=== PATIENT | male | born 1945 | race Caucasian/White ===

== ENCOUNTER 2020-04-06 09:25 | Outpatient (REF) | payer MEDICARE, SELFPAY ==
[2020-04-06 11:35] LABS: Estimated Average Glucose 123 mg/dL; Hemoglobin A1c % 5.9 %
[2020-04-06 11:53] LABS: Alanine Aminotransferase 8 U/L (0-40); Albumin Level 4.2 g/dL (3.5-5.0); Alkaline Phosphatase 74 U/L (39-117); Anion Gap 14 (12-20); Aspartate Amino Transferase 13 U/L (5-37); Bilirubin Total 0.8 mg/dL (0.0-1.0); Blood Urea Nitrogen 7 mg/dL (9-16); Calcium 8.4 mg/dL (8.4-10.2); Carbon Dioxide 26 mmol/L (22-29); Chloride 103 mmol/L (96-108); Cholesterol 133 mg/dL; Estimated Glomerular Filt Rate > 60; Glucose Fasting 113 mg/dL (60-99); HDL Cholesterol 41 mg/dL; LDL Cholesterol Calculated 79 mg/dl; Potassium 4.3 mmol/l (3.3-5.1); Sodium 139 mmol/L (135-145); Total Protein 6.8 g/dL (6.5-8.0); Triglycerides 69 mg/dL
[2020-04-06 12:14] LABS: Vitamin B12 236 pg/mL (200-900)
[2020-04-06 13:23] LABS: Creatinine Urine 53.34 mg/dL; Microalbum/Creatinine Ratio Ur 151.8 ug/mg cr
== END 2020-04-06 09:26 | disposition home or self-care (01) ==
LOC: HO.MANLR 09:25
PROVIDERS: PCP Internal Medicine; Visit Provider Internal Medicine
DX: E11.9 Type 2 diabetes mellitus without complications (principal); E53.8 Deficiency of other specified B group vitamins
CPT/HCPCS: 80053; 80061; 82043; 82607; 83036

== ENCOUNTER 2020-07-13 10:30 | Outpatient (REF) | payer MEDICARE, SELFPAY ==
[2020-07-13 13:00] LABS: Estimated Average Glucose 105 mg/dL; Hemoglobin A1c % 5.3 %
== END 2020-07-13 10:31 | disposition home or self-care (01) ==
LOC: HO.MANLDS 10:30
PROVIDERS: PCP Internal Medicine; Visit Provider Internal Medicine
DX: E11.9 Type 2 diabetes mellitus without complications (principal)
CPT/HCPCS: 36415; 83036

== ENCOUNTER 2020-11-13 11:51 | Outpatient (REF) | payer MEDICARE, SELFPAY ==
[2020-11-13 13:00] LABS: Estimated Average Glucose 82 mg/dL; Hemoglobin A1c % 4.5 %
[2020-11-13 14:26] LABS: Vitamin B12 169 pg/mL (200-900)
== END 2020-11-13 11:52 | disposition home or self-care (01) ==
LOC: HO.MANLR 11:51
PROVIDERS: PCP Internal Medicine; Visit Provider Internal Medicine
DX: E11.9 Type 2 diabetes mellitus without complications (principal); E53.8 Deficiency of other specified B group vitamins
CPT/HCPCS: 36415; 82607; 83036

== ENCOUNTER 2021-02-08 09:12 | Outpatient (REF) | payer MEDICARE, SELFPAY ==
[2021-02-08 11:16] LABS: Alanine Aminotransferase 25 U/L (0-40); Albumin Level 4.3 g/dL (3.5-5.0); Alkaline Phosphatase 69 U/L (39-117); Anion Gap 16 (12-20); Aspartate Amino Transferase 25 U/L (5-37); Bilirubin Total 0.4 mg/dL (0.0-1.0); Blood Urea Nitrogen 10 mg/dL (9-16); Calcium 9.3 mg/dL (8.4-10.2); Carbon Dioxide 30 mmol/L (22-29); Chloride 94 mmol/L (96-108); Cholesterol 180 mg/dL; Estimated Glomerular Filt Rate > 60; Glucose Fasting 244 mg/dL (60-99); HDL Cholesterol 48 mg/dL; LDL Cholesterol Calculated 91 mg/dl; Potassium 3.3 mmol/L (3.3-5.1); Sodium 137 mmol/L (135-145); Total Protein 6.7 g/dL (6.5-8.0); Triglycerides 205 mg/dL
[2021-02-08 11:16] LABS: Creatinine Urine 19.78 mg/dL; Microalbum/Creatinine Ratio Ur 65.7 ug/mg cr
[2021-02-08 11:46] LABS: Vitamin B12 1100 pg/mL (200-900)
[2021-02-08 12:02] LABS: Estimated Average Glucose 134 mg/dL; Hemoglobin A1C 159.2159 umol/L; Hemoglobin A1c % 6.3 %
== END 2021-02-08 09:13 | disposition home or self-care (01) ==
LOC: HO.MANLDS 09:12
PROVIDERS: PCP Internal Medicine; Visit Provider Internal Medicine
DX: E11.9 Type 2 diabetes mellitus without complications (principal); E53.8 Deficiency of other specified B group vitamins
CPT/HCPCS: 36415; 80053; 80061; 82043; 82607; 83036

== ENCOUNTER 2021-03-19 11:29 | Outpatient (REF) | payer MEDICARE, SELFPAY ==
[2021-03-19 14:27] LABS: Alanine Aminotransferase 20 U/L (0-40); Albumin Level 3.3 g/dL (3.5-5.0); Alkaline Phosphatase 99 U/L (39-117); Anion Gap 15 (12-20); Aspartate Amino Transferase 12 U/L (5-37); Bilirubin Total 0.2 mg/dL (0.0-1.0); Blood Urea Nitrogen 18 mg/dL (9-16); Calcium 8.6 mg/dL (8.4-10.2); Carbon Dioxide 25 mmol/L (22-29); Chloride 94 mmol/L (96-108); Estimated Glomerular Filt Rate > 60; Glucose Random 276 mg/dL (60-115); Potassium 4.4 mmol/L (3.3-5.1); Sodium 130 mmol/L (135-145); Total Protein 6.5 g/dL (6.5-8.0)
== END 2021-03-19 11:30 | disposition home or self-care (01) ==
LOC: HO.MANLDS 11:29
PROVIDERS: PCP Internal Medicine; Visit Provider Internal Medicine
DX: R60.0 Localized edema (principal)
CPT/HCPCS: 36415; 80053

== ENCOUNTER 2021-07-31 10:31 | Outpatient (REF) | payer MEDICARE, SELFPAY ==
[2021-07-31 13:44] LABS: Alanine Aminotransferase 13 U/L (0-40); Albumin Level 3.8 g/dL (3.5-5.0); Alkaline Phosphatase 83 U/L (39-117); Anion Gap 15 (12-20); Aspartate Amino Transferase 15 U/L (5-37); Bilirubin Total 0.3 mg/dL (0.0-1.0); Blood Urea Nitrogen 11 mg/dL (9-16); Calcium 8.7 mg/dL (8.4-10.2); Carbon Dioxide 30 mmol/L (22-29); Chloride 97 mmol/L (96-108); Cholesterol 160 mg/dL; Estimated Glomerular Filt Rate > 60; Glucose Random 153 mg/dL (60-115); HDL Cholesterol 41 mg/dL; LDL Cholesterol Calculated 75 mg/dl; Potassium 3.5 mmol/L (3.3-5.1); Sodium 138 mmol/L (135-145); Total Protein 6.5 g/dL (6.5-8.0); Triglycerides 220 mg/dL
[2021-07-31 13:45] LABS: Estimated Average Glucose 157 mg/dL; Hemoglobin A1c % 7.1 %
[2021-07-31 14:10] LABS: Vitamin B12 803 pg/mL (200-900)
== END 2021-07-31 10:32 | disposition home or self-care (01) ==
LOC: HO.MANLDS 10:31
PROVIDERS: PCP Internal Medicine; Visit Provider Internal Medicine
DX: I10 Essential (primary) hypertension (principal); E11.9 Type 2 diabetes mellitus without complications; E53.8 Deficiency of other specified B group vitamins
CPT/HCPCS: 36415; 80053; 80061; 82607; 83036

== ENCOUNTER 2022-02-26 08:02 | Outpatient (REF) | payer MEDICARE, SELFPAY ==
[2022-02-26 11:29] LABS: Estimated Average Glucose 286 mg/dL; Hemoglobin A1c % 11.6 %
[2022-02-26 11:36] LABS: Alanine Aminotransferase 19 U/L (0-40); Albumin Level 4.5 g/dL (3.5-5.0); Alkaline Phosphatase 98 U/L (39-117); Anion Gap 17 (12-20); Aspartate Amino Transferase 14 U/L (5-37); Bilirubin Total 0.4 mg/dL (0.0-1.0); Blood Urea Nitrogen 17 mg/dL (9-16); Calcium 9.8 mg/dL (8.4-10.2); Carbon Dioxide 29 mmol/L (22-29); Chloride 95 mmol/L (96-108); Cholesterol 193 mg/dL; Estimated Glomerular Filt Rate > 60; Glucose Random 325 mg/dL (60-115); HDL Cholesterol 38 mg/dL; LDL Cholesterol Calculated 100 mg/dl; Sodium 136 mmol/L (135-145); Total Protein 7.4 g/dL (6.5-8.0); Triglycerides 276 mg/dL
[2022-02-26 11:56] LABS: Creatinine Urine 39.07 mg/dL; Microalbum/Creatinine Ratio Ur 20.4 ug/mg cr
[2022-02-26 12:03] LABS: Vitamin B12 787 pg/mL (200-900)
== END 2022-02-26 08:03 | disposition home or self-care (01) ==
LOC: HO.MANLDS 08:02
PROVIDERS: Visit Provider Internal Medicine
DX: I10 Essential (primary) hypertension (principal); E11.9 Type 2 diabetes mellitus without complications; E53.8 Deficiency of other specified B group vitamins
CPT/HCPCS: 36415; 80053; 80061; 82043; 82607; 83036

== ENCOUNTER 2022-05-26 08:14 | Outpatient (REF) | payer MEDICARE, SELFPAY ==
[2022-05-26 11:15] LABS: Estimated Average Glucose 266 mg/dL; Hemoglobin A1c % 10.9 %
[2022-05-26 11:22] LABS: Alanine Aminotransferase 15 U/L (0-40); Albumin Level 4.3 g/dL (3.5-5.0); Alkaline Phosphatase 97 U/L (39-117); Anion Gap 15 (12-20); Aspartate Amino Transferase 12 U/L (5-37); Bilirubin Total 0.5 mg/dL (0.0-1.0); Blood Urea Nitrogen 15 mg/dL (9-16); Calcium 9.4 mg/dL (8.4-10.2); Carbon Dioxide 30 mmol/L (22-29); Chloride 99 mmol/L (96-108); Cholesterol 214 mg/dL; Estimated Glomerular Filt Rate > 60; Glucose Random 327 mg/dL (60-115); HDL Cholesterol 41 mg/dL; LDL Cholesterol Calculated 131 mg/dl; Potassium 5.1 mmol/L (3.3-5.1); Sodium 139 mmol/L (135-145); Total Protein 7.1 g/dL (6.5-8.0); Triglycerides 211 mg/dL
[2022-05-26 11:49] LABS: Vitamin B12 610 pg/mL (200-900)
== END 2022-05-26 08:15 | disposition home or self-care (01) ==
LOC: HO.MANLDS 08:14
PROVIDERS: Visit Provider Internal Medicine
DX: E11.9 Type 2 diabetes mellitus without complications (principal); I10 Essential (primary) hypertension; E53.8 Deficiency of other specified B group vitamins
CPT/HCPCS: 36415; 80053; 80061; 82607; 83036

== ENCOUNTER 2022-10-08 08:43 | Outpatient (REF) | payer MEDICARE, SELFPAY ==
[2022-10-08 12:20] LABS: Estimated Average Glucose 186 mg/dL; Hemoglobin A1c % 8.1 %
== END 2022-10-08 08:44 | disposition home or self-care (01) ==
LOC: HO.MANLDS 08:43
PROVIDERS: Visit Provider Internal Medicine
DX: E11.9 Type 2 diabetes mellitus without complications (principal)
CPT/HCPCS: 36415; 83036

== ENCOUNTER 2022-12-29 09:29 | Outpatient (REF) | payer MEDICARE, SELFPAY ==
[2022-12-29 14:13] LABS: Estimated Average Glucose 197 mg/dL; Hemoglobin A1c % 8.5 %
== END 2022-12-29 09:30 | disposition home or self-care (01) ==
LOC: HO.MANLDS 09:29
PROVIDERS: Visit Provider Internal Medicine
DX: E11.9 Type 2 diabetes mellitus without complications (principal)
CPT/HCPCS: 36415; 83036

== ENCOUNTER 2023-03-20 10:22 | Outpatient (REF) | payer MEDICARE, SELFPAY ==
[2023-03-20 14:32] LABS: Estimated Average Glucose 246 mg/dL; Hemoglobin A1c % 10.2 % (<6.0)
== END 2023-03-20 10:23 | disposition home or self-care (01) ==
LOC: HO.MANLDS 10:22
PROVIDERS: Visit Provider Internal Medicine
DX: E11.9 Type 2 diabetes mellitus without complications (principal)
CPT/HCPCS: 36415; 83036

== ENCOUNTER 2023-09-22 08:33 | Outpatient (REF) | payer MEDICARE, SELFPAY ==
[2023-09-22 14:26] LABS: Estimated Average Glucose 312 mg/dL; Hemoglobin A1c % 12.5 % (<6.0)
== END 2023-09-22 08:34 | disposition home or self-care (01) ==
LOC: HO.MANLDS 08:33
PROVIDERS: Visit Provider Internal Medicine
DX: E11.9 Type 2 diabetes mellitus without complications (principal)
CPT/HCPCS: 36415; 83036

== ENCOUNTER 2024-03-09 13:23 | Outpatient (REF) | payer MEDICARE, SELFPAY ==
[2024-03-09 18:27] LABS: Estimated Average Glucose 338 mg/dL; Hemoglobin A1C 426.3084 umol/L; Hemoglobin A1c % 13.4 % (<6.0); Total Hemoglobin (HGBA1C) 3474.4881 umol/L
== END 2024-03-09 13:24 | disposition home or self-care (01) ==
LOC: HO.MANLDS 13:23
PROVIDERS: Visit Provider Internal Medicine
DX: E11.9 Type 2 diabetes mellitus without complications (principal)
CPT/HCPCS: 36415; 83036

== ENCOUNTER 2024-11-08 14:48 | Outpatient (REF) | payer MEDICARE, SELFPAY ==
--- OUTSIDE RECORDS SUMMARY | 2024-11-08 16:32 | XMS_ITS | Data Portability ---
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) MDM MODERATE MUST MEET 2 OUT OF 3 ELEMENTS: PROBLEMS, DATA OR RISK ELEMENT 1: PROBLEMS ADDRESSED 1 OR MORE CHRONIC ILLNESS WITH EXACERBATION OR 2 OR MORE STABLE CHRONIC ILLNESSES OR 1 UNDIAGNOSED NEW PROBLEM OR 1 ACUTE ILLNESS W/SYMPTOMS OR 1 ACUTE COMPLICATED INJURY ELEMENT 2: DATA MUST MEET 1 OF 3 CATEGORIES CATEGORY 1: REVIEW OF PRIOR EXTERNAL NOTES, REVIEW OF RESULTS, ORDERING OF EACH TEST, ASSESSMENT REQUIRING INDEPENDENT HISTORIAN OR CATEGORY 2: INDEPENDENT INTERPRETATION OF TESTS BY ANOTHER PHYSICIAN OR SPECIALIST OR CATEGORY 3: DISCUSSION OF MGT OR TEST INTERPRETATION W/EXTERNAL PHYSICIAN OR SPECIALIST ELEMENT 3: RISK RISK OF COMPLICATIONS AND/OR MORBIDITY OR MORTALITY OF PATIENT MANAGEMENT PROVIDER MUST THOROUGHLY DOCUMENT EACH ELEMENT THAT IS COVERED Not available 12/31/2022 11:58:10 03/23/2023 03/23/2023 [id number] [place] [id number] (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) MDM MODERATE MUST MEET 2 OUT OF 3 ELEMENTS: PROBLEMS, DATA OR RISK ELEMENT 1: PROBLEMS ADDRESSED 1 OR MORE CHRONIC ILLNESS WITH EXACERBATION OR 2 OR MORE STABLE CHRONIC ILLNESSES OR 1 UNDIAGNOSED NEW PROBLEM OR 1 ACUTE ILLNESS W/SYMPTOMS OR 1 ACUTE COMPLICATED INJURY ELEMENT 2: DATA MUST MEET 1 OF 3 CATEGORIES CATEGORY 1: REVIEW OF PRIOR EXTERNAL NOTES, REVIEW OF RESULTS, ORDERING OF EACH TEST, ASSESSMENT REQUIRING INDEPENDENT HISTORIAN OR CATEGORY 2: INDEPENDENT INTERPRETATION OF TESTS BY ANOTHER PHYSICIAN OR SPECIALIST OR CATEGORY 3: DISCUSSION OF MGT OR TEST INTERPRETATION W/EXTERNAL PHYSICIAN OR SPECIALIST ELEMENT 3: RISK RISK OF COMPLICATIONS AND/OR MORBIDITY OR MORTALITY OF PATIENT MANAGEMENT PROVIDER MUST THOROUGHLY DOCUMENT EACH ELEMENT THAT IS COVERED Not available 03/23/2023 14:15:50 10/24/2024 10/24/2024 Patient presente d for medication refill. Patient tolerating medication well at current dose without adverse effects. Refilled as below. Discussed plan with patient, who expressed understanding. Follow up as noted below. Not available 10/24/2024 13:53:54 Plan of Treatment Reminders Order Date Submit Date Provider Last Modified By Organization Details Last Modified Time Details Appointments MEDICARE ANNUAL WELLNESS 2024 01:30P M DR KLINE Not available Not available Not available Lab CMP, serum or plasma 2024 025 [facility], [address] [place] [address], [id number], 10/24/2024 13:58:39 hemoglobi n A1c, QN, blood 2024 025 [facility], [address] [place] [address], [id number], 10/24/2024 13:58:39 CBC w/ auto diff 2024 025 [facility], [address] [place] [address], [id number], 10/24/2024 13:58:39 CMP, serum or plasma 2022 023 [facility], [address] [place] [address], [id number], 12/31/2022 12:05:23 PSA, serum or plasma 2022 023 [facility], [address] [place] [address], [id number], 12/31/2022 12:05:23 lipid panel, blood 2022 023 [facility], [address] [place] [address], [id number], 12/31/2022 12:05:23 Referral None recorded. Procedures None recorded. Surgeries None recorded. Imaging None recorded. Medication Orders Lantus Solostar U-100 Insulin 100 unit/mL (3 mL) subcutane ous pen 2024 025 [facility] #[id number], [address], [place], [id number], 10/24/2024 13:54:48 Breo Ellipta 200 mcg-25 mcg/dose powder for inhalatio n 2023 024 [facility] #[id number], [address], [place], [id number], 03/09/2024 13:50:50 diltiazem CD 180 mg capsule,e xtended release 24 hr 2023 024 [facility] #[id number], [address], [place], [id number], 09/22/2023 11:21:28 Steglatro 15 mg tablet 2022 023 [facility] #[id number], [address], [place], [id number], 03/25/2023 16:23:17 Patient TargetsNo targets recorded. Patient Instructions Encounter Date Encounter Id Patient Instructions Last Modified By Organization Details Last Modified Time 12/31/2022 [id number] leg and ankle edema: care instructions Not available 12/31/2022 11:59:15 atrial fibrillation: care instructions Not available 12/31/2022 11:59:16 pulse oximetry* SHREE Not available 12/31/2022 12:25:14 03/23/2023 [id number] learning about type 2 diabetes Not available 03/23/2023 14:13:10 type 2 diabetes: care instructions Not available 03/23/2023 14:13:10 10/24/2024 [id number] pulse oximetry* Not available 10/24/2024 13:54:49 Reason for Referral None Reported. Results Created Date Observation Date Name Description Value Unit Range Abnormal Flag Note LastModifiedBy Organization Detail LastModifiedTime 10/25/1910/24/2024 pulse oxime try* Result 97% Not Available [facility] [address] [facility] [address], [place], [address], 10/24/2024 08:45:36 Result Notes None recorded. Problems Name Problem SNOMED Code Status Onset Date Resolution Date Notes Provider Name and Address Organization Details Recorded Time Tobacco dependence syndrome 53449836 Active 2017 Not Available [facility] 3 02:45:58 Atrial fibrillation 14407600 Active 2020 Not Available [facility] 3 02:45:58 Congestive heart failure 32152389 Active 2021 Not Available [facility] 3 02:45:58 Type 2 diabetes mellitus 54533961 Active 2017 Not Available [facility] 3 02:45:58 Hypertensive disorder 63594848 Active 2017 Not Available [facility] 3 02:45:58 Chronic obstructive pulmonary disease 80688363 Active 2017 Not Available [facility] 3 02:45:58 Harmful pattern of use of alcohol 39179003 Active 2017 Not Available [facility] 3 02:45:58 Disorder of vitamin B12 785462361 Active 2017 Not Available [facility] 3 02:45:58 Edema of lower extremity 251824632 Active 2017 Not Available [facility] 3 02:45:58 Degenerative disorder of macula 091410102 Active 2017 Not Available [facility] 3 02:45:58 Cataract 246342910 Active 2017 Not Available [facility] 3 02:45:58 Lymphedema 278195780 Active 2017 Not Available [facility] 3 02:45:58 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 Please review these documents and add these problems to the patient's chart manually as needed. Problem Notes None recorded. Medical Equipment None Reported. Allergies No known drug allergies Medications Name Sig Start Date Stop Date Status Note LastModified by Organization Details LastModified Time spironolact one 100 mg tabs 11/27 completed Not Available Not Available Not Available januvia 100 mg tabs 11/27 completed Not Available Not Available Not Available metformin hydrochlori de 1000 mg tabs 11/27 completed Not Available Not Available Not Available fluticasone propionate 50 mcg/act susp 11/27 completed Not Available Not Available Not Available combivent aer 20-100 11/27 completed Not Available Not Available Not Available glipizide er 10 mg tb24 11/27 completed Not Available Not Available Not Available simvastatin 10 mg tabs 11/27 completed Not Available Not Available Not Available furosemide 40 mg tablet TAKE 1 TABLET BY MOUTH EVERY DAY 2024 active Not Available Not Available Not Avai lable metformin 500 mg tablet TAKE 1 AND 1/2 TABLETS BY MOUTH TWICE DAILY WITH MEALS 11/14 completed Not Available Not Available Not Available prednisone 10 mg tablet TAKE 1 TABLET BY MOUTH TWICE DAILY FOR 10 DAYS 02/26 completed Not Available Not Available Not Available doxycycline hyclate 100 mg capsule 12/14 completed Not Available Not Available Not Available nicotine 14 mg/24 hr daily transdermal patch Apply 1 patch every day by transderm al route for 42 days. 11/14 completed Not Available Not Available Not Available ipratropium 0.5 mg-albutero l 3 mg (2.5 mg base)/3 mL nebulizatio n soln INHALE THE CONTENTS OF 1 VIAL VIA NEBULIZER FOUR TIMES DAILY active Not Available Not Available No t Available diltiazem CD 180 mg capsule,ext ended release 24 hr TAKE 1 CAPSULE BY MOUTH EVERY DAY DIRECTED FOR ATRIAL FIBRILLAT ION active Not Available Not Available No t Available amiodarone 200 mg tablet TAKE 1 TABLET BY MOUTH EVERY DAY active Not Available Not Available No t Available metoprolol succinate ER 50 mg tablet,exte nded release 24 hr TAKE 1 TABLET BY MOUTH EVERY DAY active Not Available Not Available No t Available glipizide ER 10 mg tablet, extended release 24 hr TAKE 1 TABLET BY MOUTH TWICE DAILY active Not Available Not Available No t Available FreeStyle Lancets 28 gauge USE ONCE A DAY TO TEST BLOOD SUGARS active Not Available Not Available No t Available spironolact one 100 mg tablet TAKE 1/2 TABLET BY MOUTH EVERY DAY 02/26 completed Not Available Not Available Not Available simvastatin 10 mg tablet TAKE 1 TABLET BY MOUTH EVERY DAY active Not Available Not Available No t Available metformin 1,000 mg tablet TAKE 1 TABLET BY MOUTH TWICE A DAY WITH FOOD. 05/27 completed Not Available Not Available Not Available lisinopril 5 mg tablet 08/27 completed Not Available Not Available Not Available furosemide 20 mg tablet TAKE 1 TABLET BY MOUTH EVERY DAY FOR 15 DAYS 08/27 completed Not Available Not Available Not Available fluticasone propionate 50 mcg/actuati on nasal spray,suspe nsion INSTILL 1 SPRAY INTO EACH NOSTRIL EVERY DAY active Not Available Not Available No t Available lisinopril 2.5 mg tablet TAKE 1 TABLET BY MOUTH EVERY DAY active Not Available Not Available No t Available spironolact one 50 mg tablet TAKE 1 TABLET BY MOUTH DAILY active Not Available Not Available No t Available BD Ultra-Fine Short Pen Needle 31 gauge x 5/16 USE FIVE TIMES DAILY DIRECTED FOR INSULIN INJECTION S active Not Available Not Available No t Available Januvia 100 mg tablet TAKE 1 TABLET BY MOUTH EVERY DAY 05/27 completed Not Available Not Available Not Available FreeStyle Lite Meter kit USE DIRECTED 10/08 completed Not Available Not Available Not Available Lantus Solostar U-100 Insulin 100 unit/mL (3 mL) subcutaneou s pen Inject 36 units every day by subcutane ous route at bedtime for 30 days. 2024 active Not Available Not Available Not Avai lable Humalog KwikPen (U-100) Insulin 100 unit/mL subcutaneou s ADMINISTE R 6 UNITS UNDER THE SKIN FOUR TIMES DAILY active Not Available Not Available No t Available Combivent Respimat 20 mcg-100 mcg/actuati on solution for inhalation INHALE 1 PUFF BY MOUTH INTO THE LUNGS 4 TIMES PER DAY active Not Available Not Available No t Available Eliquis 5 mg tablet TAKE 1 TABLET BY MOUTH TWICE DAILY 2021 active Not Available Not Available Not Avai lable Breo Ellipta 200 mcg-25 mcg/dose powder for inhalation INHALE 1 PUFF BY MOUTH EVERY DAY DIRECTED active Not Available Not Available No t Available FreeStyle Precision Jitendra Strips USE DIRECTED ONCE DAILY active Not Available Not Available No t Available BD Ultra-Fine Micro Pen Needle 32 gauge x 1/4 USE DIRECTED active Not Available Not Available No t Available Steglatro 15 mg tablet Take 1 tablet every day by oral route for 30 days. 03/25 completed Not Available Not Available Not Available Steglatro 5 mg tablet Take 1 tablet every day by oral route. 03/25 completed Not Available Not Available Not Available Trelegy Ellipta 200 mcg-62.5 mcg-25 mcg powder for inhalation Inhale 1 puff every day by inhalatio n route. 09/21 completed Not Available Not Available Not Available Vitals Date Recorded Body height Body mass index (BMI) Body weight Heart rate Oxygen saturation Oxygen saturation in Arterial blood by Pulse oximetry Systolic blood pressure Diastolic blood pressure Provider Name and Address Organization Details Last Updated DateTime 4 181.61 cm 23.4 kg/m2 40831.7 g 64 /min 95 % 95 % 146 mm[Hg] 70 mm[Hg] Fredi Curry [facility] 4 11:11:15 Date Recorded Body height Body mass index (BMI) Body weight Heart rate Oxygen saturation Oxygen saturation in Arterial blood by Pulse oximetry Systolic blood pressure Diastolic blood pressure Provider Name and Address Organization Details Last Updated DateTime 5 181.61 cm 20.9 kg/m2 69765.0 4 g 64 /min 97 % 97 % 140 mm[Hg] 64 mm[Hg] Roz Ortiz [facility] 5 13:43:30 Date Recorded Body height Body mass index (BMI) Body weight Heart rate Oxygen saturation Oxygen saturation in Arterial blood by Pulse oximetry Systolic blood pressure Diastolic blood pressure Provider Name and Address Organization Details Last Updated DateTime 3 181.61 cm 23.2 kg/m2 52386.1 1 g 72 /min 94 % 94 % 120 mm[Hg] 68 mm[Hg] Amanda Kent [facility] 3 11:35:58 Date Recorded Body height Heart rate Oxygen saturation Oxygen saturation in Arterial blood by Pulse oximetry Systolic blood pressure Diastolic blood pressure Provider Name and Address Organization Details Last Updated DateTime 4 181.61 cm 65 /min 94 % 94 % 116 mm[Hg] 64 mm[Hg] Neris Chandra [facility] 4 13:32:52 Date Recorded Body height Body mass index (BMI) Body weight Heart rate Oxygen saturation Oxygen saturation in Arterial blood by Pulse oximetry Systolic blood pressure Diastolic blood pressure Provider Name and Address Organization Details Last Updated DateTime 3 181.61 cm 23.2 kg/m2 43356.1 1 g 80 /min 93 % 93 % 120 mm[Hg] 68 mm[Hg] Amanda Kent [facility] 3 13:43:50 Social History Question Answer Notes LastModified by Organizat ion Details LastModified Time Tobacco Smoking Status Current Every Day Smoker Elizabeth montez [facility] 12/14/2017 13:38:06 What Was The Date Of Your Most Recent Tobacco Screening? 03/09/2024 [email or web address] Information not available 03/09/2024 How Much Tobacco Do You Smoke? 1 PPD [email or web address] Information not available 09/22/2023 Sex: Unknown Functional Status Question Answer Note LastModified by Organization D etails LastModified Time Do you or have you ever used any other forms of tobacco or nicotine? No Information not available 12/31/2022 Mental Status None recorded. Family History Nothing Reported. Medical History No medical history recorded. Immunizations Vaccine Type Date Status Note Provider Nam e and Address Organization Details Recorded Time influenza, unspecified formulation 3 completed Not Available [facility] 03/06/2023 02:45:58 pneumococcal polysaccharide PPV23 5 completed Not Available [facility] 03/06/2023 02:45:58 Influenza, split virus, quadrivalent, preservative 9 completed Not Available [facility] 03/06/2023 02:45:58 Past Encounters Encounter ID Performer Location Encounter Start Date Encounter Closed Date Diagnosis/Indication Diagnosis SNOMED-CT Code Diagnosis ICD10 Code Diagnosis Note [id number] Ki Kline DO [facility] [address] [facility],[place] [address] 12/14/2017 13:31:57 12/14/2017 14:05:05 Type 2 diabetes mellitus 37976146 E11.9 Hypertensive disorder 38 314677 I10 excellent bp no issues Chronic ob structive pulmonary disease 41623959 J44.9 still smoking, stilll having some wheezing repeated warnings about the contiiuned smoking and its effects on the quality of his life pt no interested in quitting [id number] Ki Kline [facility] [address] [facility] [address] 04/12/2018 10:43:29 04/12/2018 12:13:23 Chronic obstructive pulmonary disease 93253530 J44.9 still smoking, stilll having some wheezing repeated warnings about the contiiuned smoking and its effects on the quality of his life pt no interested in quitting Hypertensive disorder 38 358021 I10 excellent bp no issues Type 2 jarrod betes mellitus 79256684 E11.9 will get lab today while we can he is not compliant with diet does take his meds Abdominal aortic aneurysm screening 728924853 Z13.6 US ordered Tobacco de pendence syndrome 60005685 F17.200 still not ready to quit Edema of l ower extremity 709751429 R60.0 right leg with a little swelling compared to the left [id number] Ki Kline [facility] [address] [facility], [place] [address] 07/13/2018 13:19:44 07/13/2018 13:48:34 Type 2 diabetes mellitus 74895796 E11.9 a1c is 6.3 was 6.1 he is not compliant with diet all the time does take his meds Hypertensive disorder 38 988750 I10 excellent bp no issues Chronic ob structive pulmonary disease 70691161 J44.9 still smoking, still having some wheezing repeated warnings about the contiiuned smoking and its effects on the quality of his life pt no interested in quitting cont to provide breo when we can cont his combivent Tobacco de pendence syndrome 12345270 F17.200 still not ready to quit despite my warnings [id number] Ki Kline [facility] [address] [facility],[place] [address] 12/01/2018 10:28:36 12/01/2018 10:52:07 Tobacco dependence syndrome 36578973 F17.200 still not ready to quit despite my warnings Chronic ob structive pulmonary disease 41448596 J44.9 still smoking, still having some wheezing repeated warnings about the contiiuned smoking and its effects on the quality of his life pt no interested in quitting cont to provide breo when we can cont his combivent Type 2 jarrod betes mellitus 75649987 E11.9 a1c is 5.9 was 6.3 he is not compliant with diet all the time does take his meds Hypertensive disorder 38 118052 I10 excellent bp no issues Allergic rhinitis 855374 04 J30.9 [id number] Ki Kline [facility] [address] [facility],[place] [employer] [place] [address] 04/27/2019 11:05:50 04/27/2019 11:39:20 Tobacco dependence syndrome 66426325 F17.200 still not ready to quit despite my warnings again and is reeking of cigg Chronic ob structive pulmonary disease 15623932 J44.9 still having some wheezing repeated warnings about his contiuned smoking and its effects on the quality of his lifebut he will not quit cont to provide samples when we can cont his combivent Type 2 jarrod betes mellitus 68565622 E11.9 a1c is 6.0 was 5.9 and 6.3 he is not compliant with diet all the time but i suspect he doesnt eat too much does take his meds Hypertensive disorder 38 287178 I10 excellent bp no issues stable with current meds [id number] Ki Kline [facility] [address] [facility],[place] [address] 08/05/2019 15:32:13 08/05/2019 16:55:57 Chronic obstructive pulmonary disease 81025353 J44.9 still has rhonchi on exam throughout bilateral lung jay 99% on pulse ox continues to use medication s as directed/P RN > ipratropiu m, combivent needs more samples of Breo Type 2 jarrod betes mellitus 23122913 E11.9 a1c is 6.1 (07/29/19), was 6.0 FBS 126 (07/29/19) has no diet to speak of or exercise routine does take his meds as prescribed Hypertensive disorder 38 951945 I10 good BP BP was 120/70 (08/05/19) Tobacco de pendence syndrome 95624830 F17.200 still not ready to quit despite warnings does not wish to use the patch, gum or Chantix says if he will quit on his own if he ever wanted to [id number] Ki Kline [facility] [address] [facility],[place] [address] 11/28/2019 13:53:01 11/28/2019 14:51:35 Chronic obstructive pulmonary disease 30959104 J44.9 still has rhonchi on exam throughout bilateral lung jay 99% on pulse ox continues to use medication s as directed/P RN > ipratropiu m, combivent needs more samples of Breo Hypertensive disorder 38 357544 I10 good BP BP was 120/70 (08/05/19) Type 2 jarrod betes mellitus 22458031 E11.9 a1c is 6.0 was 6.1 (07/29/19), was 6.0 FBS 126 (07/29/19) has no diet to speak of or exercise routine does take his meds as prescribed [id number] Ki Kline, [facility] [address] [facility],[place] [address] 04/06/2020 10:34:23 04/06/2020 11:30:34 Tobacco dependence syndrome 94671731 F17.200 still not ready to quit despite warnings of worsening copd and hypoxia with exertion does not wish to use the patch, gum or Chantix says if he will not quit at this time no interested and does understand the risks Chronic ob structive pulmonary disease 11027612 J44.9 he needs to get a flu vaccine this is a must and he understand s and will get it still has rhonchi on exam throughout bilateral lung jay 99% on pulse ox at rest but is 88% with walking discussed the use of oxygen but he would not be able to smoke with O2 tanks present and he states not interested continues to use medication s as directed/P RN > ipratropiu m, combivent again he needs more samples of Breo Type 2 jarrod betes mellitus 97150524 E11.9 a1c is pending last time was 6.0 was 6.1 (07/29/19), was 6.0 had a1c done today has no diet to speak of or exercise routine does take his meds as prescribed Hypertensive disorder 38 988805 I10 good BP today no issues with med BP was 120/70 (08/05/19) [id number] Ki Kline DO [facility] [address] [facility],[place] [address] 07/13/2020 10:38:26 07/13/2020 11:46:37 Chronic obstructive pulmonary disease 04006139 J44.9 he needs to get a flu vaccine this is a must and he understand s and will get it still has rhonchi on exam throughout bilateral lung jay 99% on pulse ox at rest but is 88% with walking discussed the use of oxygen but he would not be able to smoke with O2 tanks present and he states not interested continues to use medication s as directed/P RN > ipratropiu concepcion [place] again he needs more samples of Breo Type 2 jarrod betes mellitus 79061946 E11.9 a1c is pending last time was 6.0 was 6.1 (07/29/19), was 6.0 had a1c done today has no diet to speak of or exercise routine does take his meds as prescribed Hypertensive disorder 38 632914 I10 good BP today no issues with med BP was 120/70 (08/05/19) Edema of l ower extremity 893275478 R60.0 right leg with a little swelling compared to the left Tobacco de pendence syndrome 17269606 F17.200 still not ready to quit despite warnings of worsening copd and hypoxia with exertion does not wish to use the patch, gum or Chantix says if he will not quit at this time no interested and does understand the risks Active or passive immunization 599966756 Z23 we will try to get him the vacc for covid we willset him up [facility]t at [facility] [id number] Ki Kline DO [facility] [address] [facility],[place] [address] 08/03/2020 15:00:31 08/03/2020 15:45:51 Atrial fibrillation 70138815 I48.91 acute onset AFIB in office after long discussion with patient, the patient was convinced to go with daughter to go to the hospital if he does discharge himself AMA or does not wait in the ER to be seen he has medication for him to use to prevent further worsening of his condition, the patient and his daughter are told how to use each medication , their side effects, and what they are being used to treat he is advised however, that it would be better for his saftey and for his health to report to the ER where he can be monitored as we will not be able to monitor his condition over the weekened Chronic ob structive pulmonary disease 50010206 J44.9 patient is still smoking, had a pack of cigarettes in his shirt pocket, still smokes about a pack per day with no plans of quitting despite several conversati ons about the effects of smoking on his health Edema of l ower extremity 400315200 R60.0 the patient has 2+ pitting edema in his lower extermity secondary to acute CHF related to AFIB patient is urged to go to the ER for treatment as this is the best chance for the patient to recover and be appropriat nadya and safely treated patient will have all medication s necessary to treat these conditions at his pharmacy Dyspnea at rest [id number] 7 R06.00 related to combinatio n of acute CHF due to AFIB needs to go to the ER patient agreed to go to [facility] ER, expect report was filed Acute exac erbation of chronic obstructive pulmonary disease 232432721 J44.1 the patient should also be evaluated for bacterial pna as this cannot be ruled out as a factor in his condition [id number] DO Brielle Jhaveri Internal Medicine [address] [facility] [address],[place] [address] 08/27/2020 14:41:50 08/27/2020 15:24:48 Congestive heart failure 33025678 I50.9 stable, on appropriat e medication s Atrial fibrillation 4943 6004 I48.91 stable on appropriat e medication s will need fu echo in 6 mo Chronic ob structive pulmonary disease 09045618 J44.9 patient is still smoking, had a pack of cigarettes in his shirt pocket, still smokes about a pack per day with no plans of quitting despite several conversati ons about the effects of smoking on his health was given the patch Tobacco de pendence syndrome 15800752 F17.200 will start on the patch for tobacco cessation [id number] Ki Kline, [facility] Internal Medicine [address] [facility],[place] [address] 11/14/2020 14:18:05 11/14/2020 15:11:00 Atrial fibrillation 11167652 I48.91 stable no symptoms will follow Chronic ob structive pulmonary disease 13502848 J44.9 he needs to get a flu vaccine this is a must and he understand s and will get it still has rhonchi on exam throughout bilateral lung jay 99% on pulse ox at rest but is 88% with walking discussed the use of oxygen but he would not be able to smoke with O2 tanks present and he states not interested continues to use medication s as directed/P RN > ipratropiu m combivent again he needs more samples of Breo Hypertensive disorder 38 952579 I10 good BP today no issues with med BP was 120/70 (08/05/19) Type 2 jarrod betes mellitus 95818232 E11.9 a1c is 4/5!!!!!!! !!!! last time was 6.0 was 6.1 (07/29/19), was 6.0 had a1c done today as noted has no diet to speak of or exercise routine does take his meds as prescribed but witnh his a1c so low we will not continure the dm meds so stop the glipizide and stop the januvia asd will stop the metformin rechk lab in 3 mo [id number] Ki Kline, [facility] Internal Medicine [address] [facility],[place] [address] 02/20/2021 14:50:22 02/20/2021 15:18:29 Atrial fibrillation 71191960 I48.91 stable no symptoms will follow Tobacco de pendence syndrome 51025411 F17.200 still not ready to quit despite warnings of worsening copd and hypoxia with exertion does not wish to use the patch, gum or Chantix says if he will not quit at this time no interested and does understand the risks Chronic ob structive pulmonary disease 41294556 J44.9 he needs to get a flu vaccine this is a must and he understand s and will get it still has rhonchi on exam throughout bilateral lung jay 99% on pulse ox at rest but is 88% with walking discussed the use of oxygen but he would not be able to smoke with O2 tanks present and he states not interested continues to use medication s as directed/P RN > ipratropiu jodee combivent again he needs more samples of Breo Type 2 jarrod betes mellitus 29757197 E11.9 a1c is 6.3!!!!!!! !!!! last time 4.5 and was 6.0 was 6.1 (07/29/19), was 6.0 had a1c done today is 6.3!!!! has no diet to speak of or exercise routine does take his meds as prescribed but with his a1c so low we will not continue the dm meds so stop the glipizide and stop the januvia and will stop the metformin rechk lab in 3 m Edema of l ower extremity 725272098 R60.0 right leg with a little swelling compared to the left Hypertensive disorder 38 814913 I10 good BP today no issues with med BP was 120/70 (08/05/19) 08676 Ki Kline, [facility] Internal Medicine [address] [facility] [address],[place] [address] 05/24/2021 09:53:49 05/24/2021 15:25:36 Atrial fibrillation 87561020 I48.91 stable no symptoms will follow Chronic ob structive pulmonary disease 84726075 J44.9 he needs to get a flu vaccine this is a must and he understand s and will get it still has rhonchi on exam throughout bilateral lung jay 99% on pulse ox at rest but is 88% with walking discussed the use of oxygen but he would not be able to smoke with O2 tanks present and he states not interested continues to use medication s as directed/P RN > ipratropiu jodee combjhoan again he needs more samples of Breo Edema of l ower extremity 036389707 R60.0 right leg with a little swelling compared to the left and is doing much betterrela tiesha taking furosemide bid so doing good we will use once a day Type 2 jarrod betes mellitus 89339760 E11.9 a1c is not done this time but his sugar was 278 on lab not good and warned him to back off the sweets which he says he has been eating a lot of prior was 6.3!!!!!!! !!!! last time 4.5 and was 6.0 was 6.1 (07/29/19), was 6.0 had a1c done today is 6.3!!!! has no diet to speak of or exercise routine does take his meds as prescribed but with his a1c so low we will not continue the dm meds so stop the glipizide and stop the januvia and will stop the metformin rechk lab in 3 m 37594 Ki Kline [facility] Internal Medicine [address] [facility],[place] [address] 10/08/2021 15:14:01 10/09/2021 09:46:48 Atrial fibrillation 02414057 I48.91 stable no symptoms will follow Type 2 jarrod betes mellitus 64551972 E11.9 his a1c is 7.1 back off the sweets which he says he has been eating a lot of prior was has no diet to speak of or exercise routine does take his meds as prescribed but with his a1c so low we will not continue the dm meds so stop the glipizide and stop the januvia and will stop the metformin rechk lab in 3 m Chronic ob structive pulmonary disease 79288435 J44.9 he needs to get a flu vaccine this is a must and he understand s and will get it still has rhonchi on exam throughout bilateral lung jay 99% on pulse ox at rest but is 88% with walking discussed the use of oxygen but he would not be able to smoke with O2 tanks present and he states not interested continues to use medication s as directed/P RN > ipratropconcepcion triplett again he needs more samples of Breo Active or passive immunization 180435015 Z23 Refuses all Vaccines patient stated he is doing good without all vaccines Congestive heart failure 34053774 I50.9 seems to be stable and not having any problems with congestive symptoms 24618 Ki Kline [facility] Internal Medicine [address] [facility],[place] [address] 02/26/2022 12:10:16 02/26/2022 12:40:36 Hypertensive disorder 13419478 I10 good BP today no issues with med BP was 120/70 (08/05/19) Type 2 jarrod betes mellitus 99480569 E11.9 a1c is pending today last lab was a1c 7.1 back off the sweets which he says he has been eating a lot of prior was has no diet to speak of or exercise routine does take his meds as prescribed but with his a1c so low we will not continue the dm meds so stop the glipizide and stop the januvia and will stop the metformin rechk lab in 3 m Chronic ob structive pulmonary disease 14748548 J44.9 STILL SMOKING!!! !\ he needs to get a flu vaccine this is a must and he understand s and will get it still has rhonchi on exam throughout bilateral lung jay 99% on pulse ox at rest but is 88% with walking discussed the use of oxygen but he would not be able to smoke with O2 tanks present and he states not interested continues to use medication s as directed/P RN > ipratropiu jodee combivent again he needs more samples of Breo Congestive heart failure 67013759 I50.9 seems to be stable and not having any problems with congestive symptoms no swelling in legs Edema of l ower extremity 768902662 R60.0 no swelling 92784 Ki Kline DO [facility] [address] [facility] [address],[place] [address] 05/27/2022 13:21:30 05/27/2022 15:09:29 Type 2 diabetes mellitus 54757012 E11.9 a1c is still elevated at 10.9 he was 11.2 and is still just eating whatever he wants (donuts) back off the sweets which he says he has been eating a lot of has no diet to speak of or exercise routine even though we have reviewed with himwe will start steglatro 5 mg dailyrechk lab in 3 m Hypertensive disorder 38 430637 I10 good BP today no issues with med BP was 120/70 (08/05/19) Chronic ob structive pulmonary disease 87517942 J44.9 STILL SMOKING!!! !\will refill with Breo samples and tx for albuterol nebulizerh e needs to get a flu vaccine this is a must and he understand s and will get it still has rhonchi on exam throughout bilateral lung jay 99% on pulse ox at rest but is 88% with walking discussed the use of oxygen but he would not be able to smoke with O2 tanks present and he states not interested continues to use medication s as directed/P RN > ipratropiu m, combivent again he needs more samples of Breo Atrial fibrillation 4943 6004 I48.91 stable no symptoms will follow Congestive heart failure 83165081 I50.9 seems to be stable and not having any problems with congestive symptoms no swelling in legs 06865 Ki Kline [facility] Internal Medicine [address] [facility], [facility] [place] [address] 08/01/2022 14:47:36 08/01/2022 16:09:46 Atrial fibrillation 41489703 I48.0 stable on appropriat e medication s Type 2 jarrod betes mellitus 06568194 E11.9 will adjust down the lantus due to hypoglycem ic spells/diz ziness dax. since now he is on 4 units QID with humalogwil l set up with 10 Units of lantus insteadwas getting 24 units at the half-way which is when he was getting really dizzy Tobacco de pendence syndrome 06114453 F17.291 refuses to quit smoking 01408 Ki Kline DO [facility] Internal Medicine [address] [facility],[place] [facility] [address] 10/07/2022 13:33:00 10/07/2022 14:38:00 Type 2 diabetes mellitus 85141024 E11.9 his last a1c is 13.9 and he ended up in hosptial soon afterwas sent home on 10 lantus his home sugar readings are 200-300+ we will increase his lantus to 20 unitsback off the sweets which he says he has been eating a lot of has no diet to speak of or exercise routine even though we have reviewed with him rechk lab in 3 m Hypertensive disorder 38 288129 I10 good BP today no issues with med BP was 120/70 (08/05/19) Edema of l ower extremity 389104925 R60.0 no swelling doing well Chronic ob structive pulmonary disease 54193228 J44.9 STILL SMOKING!!! ! will refill with Breo samples and tx for albuterol nebulizer he needs to get a flu vaccine this is a must and he understand s and will get it still has rhonchi on exam throughout bilateral lung jay 99% on pulse ox at rest but is 88% with walking discussed the use of oxygen but he would not be able to smoke with O2 tanks present and he states not interested continues to use medication s as directed/P RN > ipratropijody ellsworth combivent again he needs more samples of Breo 12350 Ki Kline, [facility] Internal Medicine [address] [facility],[place] [address] 12/31/2022 11:19:32 12/31/2022 12:12:24 Congestive heart failure 72098893 I50.9 seems to be stable and not having any problems with congestive symptoms no swelling in legs Atrial fibrillation 4943 6004 I48.91 stable no symptoms will follow Tobacco de pendence syndrome 74488299 F17.291 still not ready to quit despite warnings of worsening copd and hypoxia with exertion does not wish to use the patch, gum or Chantix says if he will not quit at this time no interested and does understand the risks Edema of l ower extremity 583335473 R60.0 no swelling doing well Chronic ob structive pulmonary disease 88111210 J44.9 STILL SMOKING!!! ! will refill with Breo samples and tx for albuterol nebulizer he needs to get a flu vaccine this is a must and he understand s and will get it still has rhonchi on exam throughout bilateral lung jay 99% on pulse ox at rest but is 88% with walking discussed the use of oxygen but he would not be able to smoke with O2 tanks present and he states not interested continues to use medication s as directed/P RN > ipratropijody ellsworth combivent again he needs more samples of Breo Hypertensive disorder 38 273893 I10 good BP today no issues with med BP was 120/70 (08/05/19) Type 2 jarrod betes mellitus 45377600 E11.9 a1c is 8.5 was 8.1 eating a lot of fruit this summer discussed diet with daughter here toowi reiiterate d the need for humalog 4 u 4x day and lantus 30 units rechk lab in 3 m 42974 Ki Kline DO [facility] [address] [facility] [address],[place] [address] 03/23/2023 13:38:26 03/24/2023 11:26:34 Chronic obstructive pulmonary disease 68387593 J44.9 STILL SMOKING!!! ! will refill with Breo samples and tx for albuterol nebulizer he needs to get a flu vaccine this is a must and he understand s and will get it still has rhonchi on exam throughout bilateral lung jay 99% on pulse ox at rest but is 88% with walking discussed the use of oxygen but he would not be able to smoke with O2 tanks present and he states not interested continues to use medication s as directed/P RN > ipratropiu m, combivent again he needs more samples of Breo Congestive heart failure 95819833 I50.9 seems to be stable and not having any problems with congestive symptoms no swelling in legs Type 2 jarrod betes mellitus 56383409 E11.9 a1c is up to 10.2 was 8.5 was 8.1 eating a lot of fruit this summer discussed diet with daughter here elsie reiiteradeven cele the need for humalog 4 u 4x day and lantus 30 units rechk lab in 3 m [id number] DILAN WAGNER [facility] [address] [facility],[place] [address] 09/22/2023 11:06:48 09/22/2023 11:42:08 Congestive heart failure 13643096 I50.9 stable, on appropriat e medication s Atrial fibrillation 4943 6004 I48.0 stable on appropriat e medication s Type 2 jarrod betes mellitus 80325292 E11.9 will adjust down the lantus due to hypoglycem ic spells/diz ziness dax. since now he is on 4 units QID with humalogwil l set up with 10 Units of lantus insteadwas getting 24 units at the half-way which is when he was getting really dizzy [id number] Ki Kline DO [facility] Internal Medicine [address] [facility] [address],[place] [address] 03/09/2024 13:25:26 03/09/2024 14:07:22 Depression screening 204574287 Z13.31 negative Atrial fibrillation 4943 6004 I48.0 stable on appropriat e medication s Chronic ob structive pulmonary disease 18435249 J44.9 patient is still smoking, had a pack of cigarettes in his shirt pocket, still smokes about a pack per day with no plans of quitting despite several conversati ons about the effects of smoking on his health was given the patch At high risk for fall 45 [id number] 31536152 Z91.89 aware [id number] Ki Kline, [facility] Internal Medicine [address] [facility] [place] [address] 10/24/2024 13:25:22 10/24/2024 14:11:35 Renewal of prescription 208860290 Z76.0 stable except for the Lantus needs another pen or two Depression screening 171 734642 Z13.31 neg Chronic ob structive pulmonary disease 60776413 J44.9 STILL SMOKING!!! ! will refill with Breo samples and tx for albuterol nebulizer he needs to get a flu vaccine this is a must and he understand s and will get it still has rhonchi on exam throughout bilateral lung jay 99% on pulse ox at rest but is 88% with walking discussed the use of oxygen but he would not be able to smoke with O2 tanks present and he states not interested continues to use medication s as directed/P RN > ipratropiu m, combivent again he needs more samples of Breo Type 2 jarrod betes mellitus 90817409 E11.9 a1c is pending up to 10.2 was 8.5 was 8.1 eating a lot of fruit this summer discussed diet with daughter here toowi reiiterate d the need for humalog 4 u 4x day and lantus 30 units rechk lab in 3 m Health Concerns Section Related Observation LastModified by Organization Harrison coombs LastModified Time None Recorded Concern Status LastModified by Organization Details LastModified Time None Recorded Advance Directives Directive None Recorded Payers Encounter Date Sequence Insurance Name Policy Number Policy Ramírez Covered Member ID Ramírez Member ID Guarantor Name 12/31/2022 2 [employer] (MEDICARE SUPPLEMENT) Edward Tether [id number] Edward A Tether 12/31/2022 1 [place] [employer] Edward A Tether [id number] Edward A Tether 03/23/2023 2 [employer] (MEDICARE SUPPLEMENT) Edward Tether [id number] Edward A Tether 03/23/2023 1 [place] Edward A Tether [id number] Edward A Tether 09/22/2023 2 [employer] (MEDICARE SUPPLEMENT) Edward Tether [id number] Edward A Tether 09/22/2023 1 [place] Edward A Tether [id number] Edward A Tether 03/09/2024 2 [employer] (MEDICARE SUPPLEMENT) Edward Tether [id number] Edward A Tether 03/09/2024 1 [place] Edward A Tether [id number] Edward A Tether 10/24/2024 2 [employer] (MEDICARE SUPPLEMENT) Edward Tether [id number] Edward A Tether 10/24/2024 1 [place] [facility] G[facility]MENT SERVICES Edward A Tether [id number] Edward A Tether Notes Date Note Type Note Provider Name a nd Address Organization Details Recorded Time 3 text/html Care Management - DiabetesReported bypatient.Self Care:seeing eye doctor yearly for dilated eye exam; checking feet regularly; normal range of home blood sugars (in the low 100s); no side effects from medications Associated Symptoms:symptoms are usually well controlled; no fatigue; no dizziness; no excessive sweating; no headaches; no confusion; no increased thirst; no increased appetite; no increased urination; no blurred vision; no numbness of feet; no calluses on feetHypertension F/UReported bypatient.Medications :taking medications as directed; no side effects from medication Lifestyle:regular exercise; limiting/avoiding salt; compliant with low salt diet Associated Symptoms:no dizziness; no lightheadedness; no chest pain; no shortness of breath; no palpitations; no edema; no calf pain with exertion; no headache statesis doing ok overalldenies any cp no sob unless exertsnot walking too much uses the wheeled chair and scooter at home Ki Kline DO [address] [place], [address], [facility] Medicine 12/31/2022 12:03:56 3 text/html Care Management - DiabetesReported bypatient.Self Care:seeing eye doctor yearly for dilated eye exam; checking feet regularly; normal range of home blood sugars (in the low 100s); no side effects from medications; frequency of blood glucose monitoring: average of 3 or fewer times per day; hemoglobin A1C goal: <7.5; hemoglobin A1C levels have been: >9 Associated Symptoms:symptoms are usually well controlled; no fatigue; no dizziness; no excessive sweating; no headaches; no confusion; no increased thirst; no increased appetite; no increased urination; no blurred vision; no numbness of feet; no calluses on feet here for rechkand is doing ok relates feeling welleating good sleep okbowels okblddr isa1c is up to 10.3 from8.5admits to poor diet choices at times Ki Kline DO [address] [place], [address], [facility] Medicine 03/23/2023 14:18:56 4 text/html medications COPD: stable, no major changes still using his inhalerssmoking about the same as last time we talkeda-fib seems to have been stable per patient, no obvious symptoms the patient weight is stablethe patient reports that he is feeling the patient just smoked a cigarette before he came inhis BP is elevated and he has rhonchi throughout DILAN WAGNER [address] [place], [address], [facility] Medicine 09/22/2023 11:27:22 4 text/html f/u 6 mos COPD: stable per patientstill smoking atrial fibrillation: stable per patientno chest pain, no sob, no wheezing, no back pain, no headache, no vision changesdoes have bruising throughout his body, had a new electric wheelchair, runs into the mccall all the time (says it can be too fast) fall risk: reviewed risk score with patient and son BRITTNEYMARILYN JONESDILAN FERNANDES [address] [place], [address], [facility] Medicine 03/09/2024 13:54:48 5 text/html Care Management - Chronic Obstructive Pulmonary Disease (COPD)Reported bypatient.Severity:sy mptoms are improving; does not interfere with daily activities Associated Symptoms:no chest tightness; no shortness of breath; no wheezing; not constantly clearing the throat; no blueness of the lips; no fatigue; no respiratory infectionsCare Management - Congestive Heart Failure (CHF)Reported bypatient.Self Care:not under emotional stress; no recent hospitalization Severity:symptoms are improving; does not interfere with daily activities Associated Symptoms:no chest pain; normal heartbeat; no chest tightness; no constant coughing; no blood from coughs; no shortness of breath; no fatigue; no limb swelling; no abdominal swelling; no appetite lossCare Management - DiabetesReported bypatient.Self Care:seeing eye doctor yearly for dilated eye exam; checking feet regularly; normal range of home blood sugars (in the low 100s); no side effects from medications Associated Symptoms:symptoms are usually well controlled; no fatigue; no dizziness; no excessive sweating; no headaches; no confusion; no increased thirst; no increased appetite; no increased urination; no blurred vision; no numbness of feet; no calluses on feet here for rechk and is doing ok overall still smoking and no major issuesdenies cpno sob medications COPD: stable, no major changes still using his inhalerssmoking about the same as last time we talkeda-fib seems to have been stable per patient, no obvious symptoms the patient weight is stablethe patient reports that he is feeling the patient just smoked a cigarette before he came inhis BP is elevated and he has rhonchi throughout Ki Kline DO [address] [place], [address], [facility] Medicine 10/24/2024 14:02:25
[2024-11-08 18:31] LABS: MANUAL DIFF FLAG NO
[2024-11-08 18:44] LABS: Basophils Absolute Auto 0.1 X10*3/uL (0.0-0.2); Basophils Percent Auto 0.8 % (0-2); Eosinophils Absolute Auto 0.2 X10*3/uL (0.0-0.4); Eosinophils Percent Auto 1.7 % (0-4); Hemoglobin 15.1 g/dl (14.0-18.0); Imm Gran Abs Auto 0.09 X10*3/uL (0.00-0.03); Imm Gran Pct Auto 0.8 % (0.0-0.4); Lymphocytes Absolute Auto 2.1 X10*3/uL (1.2-4.9); Lymphocytes Percent Auto 18.9 % (20-40); Mean Corpuscular HGB Conc 33.6 g/dl (31.0-36.0); Mean Corpuscular Hemoglobin 28.9 pg (27.0-33.0); Mean Platelet Volume 9.1 fL (9.4-12.4); Monocytes Absolute Auto 1.1 X10*3/uL (0.1-1.2); Monocytes Percent Auto 10.1 % (2-11); Neutrophils Absolute Auto 7.6 x10*3/uL (2.0-8.3); Neutrophils Percent Auto 67.7 % (45-73); Platelet Count 357 X10*3/uL (160-400); Red Blood Count 5.23 X10*6/uL (4.60-5.80); Red Cell Distribution Width 15.5 % (11.0-16.0); White Blood Count 11.3 X10*3/uL (4.8-10.8)
[2024-11-08 18:52] LABS: Alanine Aminotransferase 16 U/L (0-40); Albumin Level 4.2 g/dL (3.5-5.0); Alkaline Phosphatase 102 U/L (39-117); Anion Gap 15 (12-20); Aspartate Amino Transferase 22 U/L (5-37); Bilirubin Total 0.3 mg/dL (0.0-1.0); Blood Urea Nitrogen 26 mg/dL (9-16); Calcium 10.2 mg/dL (8.4-10.2); Carbon Dioxide 28 mmol/L (22-29); Chloride 94 mmol/L (96-108); Estimated Glomerular Filt Rate > 60; Glucose Random 310 mg/dL (60-115); Potassium 4.6 mmol/L (3.3-5.1); Sodium 132 mmol/L (135-145); Total Protein 7.5 g/dL (6.5-8.0)
[2024-11-09 05:50] LABS: Estimated Average Glucose 278 mg/dL; Hemoglobin A1c % 11.3 % (<6.0)
== END 2024-11-08 14:49 | disposition home or self-care (01) ==
LOC: HO.MANLDS 14:48
PROVIDERS: Visit Provider Internal Medicine
DX: E11.9 Type 2 diabetes mellitus without complications (principal)
CPT/HCPCS: 36415; 80053; 83036; 85025

== ENCOUNTER 2025-02-17 12:02 | Outpatient (REF) | payer MEDICARE, SELFPAY ==
--- OUTSIDE RECORDS SUMMARY | 2025-02-17 14:30 | XMS_ITS | Clinical Summary ---
Author Organization [facility] Address [address] [place] [address] Phone Care Team Providers Care Germination Testing Manager Name Role Phone Ki Triana DO Primary Care Provider [phone] Allergies No known active allergies Medications ertugliflozin (STEGLATRO) 5 mg Tab Take 5 mg by mouth daily. Active amiodarone (PACERONE) 200 MG tablet Take 200 mg by mouth daily. Active furosemide (LASIX) 40 MG tablet Take 40 mg by mouth daily. Active lisinopril (PRINIVIL,ZEST RIL) 2.5 MG tablet Take 2.5 mg by mouth daily. Active multivitamin-m inerals-lutein (CENTRUM SILVER) Tab Take 1 tablet by mouth daily. Active simvastatin (ZOCOR) 10 MG tablet Take 10 mg by mouth nightly at bedtime. Activ e spironolactone (ALDACTONE) 50 MG tablet Take 50 mg by mouth daily. Active fluticasone propionate (FLONASE) 50 mcg/actuation nasal spray 1 spray by Nasal route daily. Active cyanocobalamin , vitamin B-12, 250 MCG tablet Take 250 mcg by mouth daily. Active fluticasone furoate-vilant Carla (BREO ELLIPTA) 200-25 mcg/dose inhaler Inhale 1 puff into the lungs daily. Active ipratropium-al buteroL (COMBIVENT RESPIMAT) 20-100 mcg/actuation Mist Inhale 1 puff into the lungs 4 (four) times a day. Active dilTIAZem (CARDIZEM CD) 180 MG 24 hr capsule Take 180 mg by mouth daily. Active apixaban (ELIQUIS) 5 mg tablet Take 5 mg by mouth 2 (two) times a day. Active cholecalcifero l (VITAMIN D3) 25 MCG (1,000 unit) tablet Take 1 tablet (1,000 Units total) by mouth daily. 07/10/19 Active ferrous sulfate 325 mg (65 mg jackson iron) tablet Take 1 tablet (325 mg total) by mouth daily with breakfast. 07/10/19 Active insulin glargine (LANTUS) 100 unit/mL injection vial [The details of the medication are not available because there are pending changes by a home health clinician.] 10 mL 07/10/19 Active Additional Information Patient taking differently: 10 UnitsSubcutaneous Nightly, Reported on 08/06/2022 metoprolol succinate (TOPROL-XL) 50 MG 24 hr tablet Take 0.5 tablets (25 mg total) by mouth daily. 07/10/19 Active miconazole 2 % Oint Apply topically 2 (two) times a day. 56 g 07/10/19 Active nicotine (NICODERM CQ) 14 mg/24 hr [The details of the medication are not available because there are pending changes by a home health clinician.] 30 patch 07/10/19 Active Additional Information Patient not taking.Reason: Patient Declined, Informant: Self, Reported on 07/28/2022 thiamine (VITAMIN B-1) 100 MG tablet Take 1 tablet (100 mg total) by mouth daily. 07/10/19 Active insulin syringe-needle U-100 1 mL 31 gauge x 5/16 Syrg For use with insulin up to 4 times a day, as directed. 100 each 07/10/19 Active insulin lispro (HUMALOG U-100 INSULIN) 100 unit/mL injection vial Inject 4 Units under the skin 3 (three) times a day before meals. 07/28/19 Active Active Problems Problem Noted Date Diagnosed Date Hyponatremia 07/09/2022 Assessment & Plan (07/10/2022 8:07 AM EST): resolved FTT (failure to thrive) in adult 07/09/2022 Assessment & Plan (07/10/2022 7:56 AM EST): Patient with poor oral intake/nutrition at home -RD consult, appreciate recs -PT/OT VNA Hypotension 07/08/2022 Assessment & Plan (07/09/2022 12:40 PM EST): On 07/08 patient hypotensive 07/08 in 80s/30s-50s; possibly due to low cardiac output versus dehydration. Given 1 L of LR. BP improved on recheck to 90s/50s. 07/09, continued to have episodes of asymptomatic hypotension - Continue to follow vital signs closely -Holding parameters for blood pressure medications as described below -Orthostatic VS to be performed by PT/OT Hyperglycemia 07/07/2022 Assessment & Plan (07/10/2022 10:09 AM EST): Patient with diabetes on glipizide with recent addition of Steglatro about a month ago. Patient's compliance with medications is unclear. He tells me that he does follow whether he takes them or not by use of a pillbox. I did try to reach out to his daughter no pickup. Per his PCP's note last hemoglobin A1c was 10.9; on repeat, A1c 13.9%. At this point, it would be best to keep the patient's medication regimen as simple as possible. I am not clear if it would be practical to dose insulin 4 times a day. He would also benefit from the SGLT2 inhibitor in the setting of his heart failure. At this point I will restart the Steglatro and dose his insulin once a day. I am concerned about cognitive function I do believe he is competent to make medical decisions but may have some difficulty and need ongoing training and care for giving himself insulin. I will get an OT evaluation, he is amenable to going to rehab if he skills in. Of note, nursing staff tells me he has not yet successfully self injected and I am worried about a safe discharge plan. HTN (hypertension) 07/07/2022 Assessment & Plan (07/10/2022 7:57 AM EST): - metoprolol, lisinopril, Lasix, spironolactone, diltiazem were all continued with holding parameters metoprolol dose decreased as patient's blood pressure was relatively low on presentation and throughout the hospital stay CHF (congestive heart failure) 07/07/2022 Assessment & Plan (07/10/2022 7:56 AM EST): echo August 2020 demonstrated severely reduced LV systolic function with EF 20- 30%. -Continue Lasix and spironolactone PAF (paroxysmal atrial fibrillation) 07/07/2022 Assessment & Plan (07/08/2022 7:42 PM EST): -Patient is on amiodarone, diltiazem, Toprol-XL; continue as above with hold parameters -Continue Eliquis for anticoagulation COPD (chronic obstructive pulmonary disease) Assessment & Plan (07/10/2022 7:56 AM EST): continue home medication regimen Smoker 07/07/2022 Assessment & Plan (07/07/2022 8:10 PM EST): - Smoking cessation advised, patient reports he has been cutting down recently, nicotine patch ordered Unsteady gait 07/07/2022 Assessment & Plan (07/07/2022 8:09 PM EST): -Patient ambulates at home with a scooter, lives alone -PT/OT eval Immunizations Immunization Administration Dates Next Due Influenza High-Dose Quadrivalent Preservative Fr ee IM 07/10/2022 Family History Medical History Relation Comments Stroke Father Relation Status Comments Father Social History Tobacco Use Types Packs/Day Years Used Date Smoking Tobacco: Every Day Cigarettes Tobacco Cessation:Ready to Q uit: Not Asked; Counseling Given: Not Answered Alcohol Use Standard Drinks/Week Comments Not Currently 0 (1 standard drink = 0.6 oz pur e alcohol) Home Health Assessment: Transportation Answer Date Recorded Lack of Transportation (Medical) No 09/15/2022 Lack of Transportation (Non-Medical) No 09/15/2022 Patient Unable or Declines to Respond No 09/15/2022 Education Answer Date Recorded Are you interested in more education? Not on rayne e 10/03/2022 Are you concerned about learning? Not on file 10/03/2022 No 10/03/2022 No 10/03/2022 Digital Access Answer Date Recorded No 11/03/2022 No 11/03/2022 No 11/03/2022 Reliable internet access at home? Not on file 11/03/2022 Device with a working camera? Not on file Intimate Partner Violence Answer Date R ecorded Are you denied basic needs s uch as food, clothing, or medical care? No 07/07/2022 In the past 12 months have y ou been in a relationship with a person who hurts, threatens, or tries to control you? No 07/07/2022 Are you denied basic needs s uch as food, clothing, or medical care? No 07/07/2022 In the past 12 months have y ou been in a relationship with a person who hurts, threatens, or tries to control you? No 07/07/2022 Sex and Gender Information Value Date Recorded Sex Assigned at Male 07/07/2022 1:58 PM EST Legal Sex Male 10:08 PM EDT Gender Identity Male 07/07/2022 1:58 PM EST Sexual Orientation Not on file Last Filed Vital Signs Vital Sign Reading Time Taken Comments Blood Pressure 122/60 09/15/2022 10:07 AM EDT Pulse 78 09/15/2022 10:07 AM EDT Temperature 36.6 C (97.8 F) 09/15/2022 10:07 AM EDT Respiratory Rate 18 09/15/2022 10:0 7 AM EDT Oxygen Saturation 94% 09/15/2022 10: 07 AM EDT Inhaled Oxygen Concentration - - Weight 78.9 kg (173 lb 15.1 oz) 07/09/2022 6:13 AM EST Height 182.9 cm (6') 07/07/2022 1:56 PM EST Body Mass Index 23.59 07/07/2022 1:56 PM EST Plan of Treatment Health Maintenance Due Date Last Done Comments Adult Td,Tdap Booster 1945 TSH LEVEL 1945 DEPRESSION SCREENING 1957 SMOKING Hx and SMOKELESS TOBACCO SCREENING 1958 HEPATITIS C SCREENING 1963 ZOSTER VACCINES (1 of 2) 1995 PNEUMOCOCCAL VACCINES (50+ years) (2 of 2 - PCV) 10/21/2016 10/22/2015, 10/21/2014 RSV VACCINE (1 - 1-dose 75+ series) 2020 BLOOD PRESSURE 03/17/2023 09/15/2022 ALT LEVEL (ALANINE AMINOTRANSFERASE) 07/09/2023 07/09/2022, 07/07/2022 CREATININE LEVEL 07/18/2023 07/18/2022, 08/2022, 07/10/2022, Additional history exists POTASSIUM LEVEL 07/18/2023 07/18/2022, 08/2022, 07/10/2022, Additional history exists INFLUENZA VACCINE (#1) 2025 , 05/13/2019, 03/18/2016, Additional history exists COVID-19 VACCINE ( season) 2025 LIPID PANEL 07/08/2027 07/08/2022 HEPATITIS A VACCINES Aged Out No long er eligible based on patient's age to complete this topic HIB VACCINES Aged Out No longer eligi ble based on patient's age to complete this topic MENINGOCOCCAL VACCINES (ACWY) Aged Out No longer eligible based on patient's age to complete this topic MENINGOCOCCAL VACCINES (B) Aged Out N o longer eligible based on patient's age to complete this topic Medical Devices Not on file Procedures Procedure Name Priority Date/Time Associated Diagnosis Comments BASIC METABOLIC PANEL Routine 07/18/2022 6:02 AM EST Primary hypertension LFTS (HEPATIC PANEL) Routine 07/09/2022 5:49 AM EST LIPID PANEL Routine 07/08/2022 5:44 AM EST from Last 3 Months or Most Recently Relevant to Health Maintenance Results * (ABNORMAL) Basic metabolic panel (07/18/2022 6:02 AM EST) SODIUM 132(L) 133 - 146 mmol/L [facility] CHLORIDE 96 96 - 108 mmol/L [facility] POTASSIUM 5.3(H) 3.3 - 5.1 mmol/L [facility] CO2 22 21 - 35 mmol/L [facility] BUN 53(H) 6 - 19 mg/dL [facility] CREATININE 1.10 0.5 - 1.5 mg/dL [facility] GLUCOSE 114(H) 70 - 99 mg/dL [facility] CALCIUM 8.9 8.4 - 10.3 mg/dL [facility] EGFR 69 >59 mL/min/1.7 3m2 [facility] Comment:Estimated glomerular filtration rate calculated using the CKD-EPI refit equation. ANION GAP 19 10 - 20 mmol/L [facility] Blood 07/18/2022 6:02 AM EST 07/18/2022 7:45 AM EST us Delores Echols PA LAB BLOOD ORDERABLES Final R esult Performing Organization Address City/[facility]/ZIP Co de Phone Number [address] [address] * (ABNORMAL) LFTs (hepatic panel) (07/09/2022 5:49 AM EST) ALKALINE PHOSPHATASE 102 39 - 117 U/L [facility] TOTAL BILIRUBIN 0.2 0.0 - 1.2 mg/dL [facility] DIRECT BILIRUBIN <0.2 0 - 0.3 mg/dL [facility] Bilirubin (Indirect) NOT CALCULATED 0 - 1.5 mg/dL [facility] AST 13 0 - 37 U/L [facility] ALT 11 0 - 40 U/L [facility] TOTAL PROTEIN 6.0(L) 6.5 - 8.0 g/dL [facility] ALBUMIN 3.0(L) 3.9 - 4.8 g/dL [facility] GLOBULIN 3.0 1 - 4.8 g/dL [facility] A/G Ratio 1.00 1.00 - 4.80 RATIO [facility] Blood 07/09/2022 5:49 AM EST 07/09/2022 6:23 AM EST us Hayder Franklin SENIOR TAX SPECIALIST LAB BLOOD ORDERABLES Fi nal Result Performing Organization Address City/[facility]/ZIP Co de Phone Number [address] [address] * (ABNORMAL) Lipid panel (07/08/2022 5:44 AM EST) HDL 36 mg/dL [facility] Comment: Interpretation <40 mg/dL: Low HDL cholesterol (major risk factor for CHD) Greater than or equal to 60 mg/dL: High HDL cholesterol ( negative risk factor for CHD) HDL - cholesterol is affected by a number of factors, e.g. smoking, excerise, hormones, sex and age. CHOLESTEROL 143 0 - 240 mg/dL [facility] TRIGLYCERIDES 307(H) 30 - 160 mg/dL [facility] LDL 46(L) 50 - 129 mg/dL [facility] Comment: LDL levels in terms of risk for coronary heart disease: <100 mg/dL: Optimal 100-129 mg/dL: Near or above optimal 130-159 mg/dL: Borderline high 160-189 mg/dL: High >190 mg/dL: Very High CARDIAC RISK RATIO 4.0 3.4 - 5.0 C [facility] Blood 07/08/2022 5:44 AM EST 07/08/2022 5:53 AM EST us Makenzie Read DO LAB BLOOD ORDERABLES Final Re sult [facility] [address] [place] [address] from Last 3 Months or Most Recently Relevant to Health Maintenance Insurance MED[place] PART [place] [id number] [facility] MEDICARE SUPPLEMENT MEDICARE PART A & B [facility] MEDICARE SUPPLEMENT MEDICARE PART A & B [facility] MEDICARE SUPPLEMENT MEDICARE PART A & B [facility] MEDICARE SUPPLEMENT MEDICARE PART A & B Member Subscriber Plan / Payer ( fective 2010-) Name:Rene Saleem Member ID:[id number] Relation to Subscriber:Self Name:Rene Saleem Subscriber ID:[id number] Payer ID:[id number] Group ID:Not on file Type:Medicare Address: [facility] it [facility] [employer] 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 PCP - General Internal Medicine 04/19/18 Additional Source Comments The information contained in this document represents components of the legal health record. It is not the complete legal health record.[facility]
--- OUTSIDE RECORDS SUMMARY | 2025-02-17 14:30 | XMS_ITS | Encounter Summary ---
Author Organization [facility] Address [address] [place] [address] Phone Care Team Providers Care Sternman Name Role Phone Ki Triana DO Primary Care Provider [phone] Encounter Details Date Type Department Care Team (Late st Contact Info) Description 07/07/2022 Procedure Pass [facility], Ct Scan - [address] [address] Social History Tobacco Use Types Packs/Day Years Used Date Smoking Tobacco: Every Day Cigarettes Alcohol Use Standard Drinks/Week Comments Not Currently 0 (1 standard drink = 0.6 oz pur e alcohol) Intimate Partner Violence Answer Date R ecorded [...] PM EST Sexual Orientation Not on file documented as of this encounter Functional Status * Calculated C-SSRS Risk Score (Lifetime/Recent) Answer Date of Assessment Author No Risk Indicated 07/07/2022 1:57 PM Siri Collins RN * [place] Suicide Severity Rating Scale (Screener/Recent Self-Report) Question Answer Date of Assessment Author 1. Wish to be (Past 1 Month) No 07/07/2022 1:57 PM Kavya Melton RN 2. Non-Specific Active Suicidal Thoughts (Past 1 Month) No 07/07/2022 1:57 PM Kavya Melton RN 6. Suicidal Behavior (Lifetime) No 07/07/2022 1:57 PM Kavya Melton RN documented as of this encounter Plan of Treatment Not on file documented as of this encounter Visit Diagnoses Not on filedocumented in this encounter Care Teams Sternman Relationship Specialty Start Date End Date Ki Triana DO [email or web address] PCP - General Internal Medicine 04/19/18 documented as of this encounter Additional Source Comments The information contained in this document represents components of the legal health record. It is not the complete legal health record.[facility]
--- OUTSIDE RECORDS SUMMARY | 2025-02-17 14:30 | XMS_ITS | Encounter Summary ---
Author Organization [facility] Address [address] [address] Phone Care Team Providers Care Contact Center Agent Name Role Phone Ki Triana DO Primary Care Provider Encounter Details Date Type Department Care Team ([facility] st Contact Info) Description 04/12/2018 Ancillary Orders Virtual Department [address] [place] [address] Ki Triana DO [address] [facility] [place] [address] [place] [address] Screening for AAA (abdominal aortic aneurysm); Encounter for screening for cardiovascular disorders Social History Tobacco Use Types Packs/Day Years Used Date Smoking Tobacco: Never Assessed Sex and Gender Information Value Date Recorded Sex Assigned at Male 07/07/2022 1:58 PM EST Legal Sex Male 10:08 PM EDT Gender Identity Male 07/07/2022 1:58 PM EST Sexual Orientation Not on file documented as of this encounter Plan of Treatment Not on file documented as of this encounter Results * US Abdominal Aortic Screening (05/04/2018 1:45 PM EST) Anatomical Region Laterality Modality Abdomen Ultrasound 05/04/2018 1:47 PM EST Impressions 05/04/2018 1:48 PM EST No AAA. POS [id number] Narrative 05/04/2018 1:48 PM EST COMPARISON: None. ABDOMINAL AORTA ULTRASOUND FINDINGS: No evidence of an abdominal aortic aneurysm. The proximal common iliac arteries are nonaneurysmal. Aorta measures up to 2.4 cm. Moderate calcified plaque throughout the abdominal aorta. Procedure Note Andrew Lezama MD - 05/04/2018 COMPARISON: None. ABDOMINAL AORTA ULTRASOUND FINDINGS: No evidence of an abdominal aortic aneurysm. The proximal common iliacarteries are nonaneurysmal. Aorta measures up to 2.4 cm. Moderatecalcified plaque throughout the abdominal aorta. IMPRESSION: No AAA. POS [id number] us Ki Triana DO IMG US ABDOMEN Final Result documented in this encounter Visit Diagnoses Diagnosis Screening for AAA (abdominal aortic aneurysm) Screening for other and unspecified cardiovascular conditions Encounter for screening for cardiovascular disorders Screening for AAA (abdominal aortic aneurysm) Screening for other and unspecified cardiovascular conditions Encounter for screening for cardiovascular disorders documented in this encounter Care Teams Contact Center Agent Relationship Specialty Start Date End Date Ki Triana DO [email or web address] PCP - General Internal Medicine 04/19/18 documented as of this encounter Additional Source Comments The information contained in this document represents components of the legal health record. It is not the complete legal health record.[facility]
[2025-02-17 18:13] LABS: MANUAL DIFF FLAG NO
[2025-02-17 18:22] LABS: Hematocrit 45.3 % (42.0-52.0); Hemoglobin 15.4 g/dl (14.0-18.0); Imm Gran Abs Auto 0.09 X10*3/uL (0.00-0.03); Imm Gran Pct Auto 0.8 % (0.0-0.4); Lymphocytes Absolute Auto 2.5 X10*3/uL (1.2-4.9); Mean Corpuscular HGB Conc 34.0 g/dl (31.0-36.0); Mean Corpuscular Hemoglobin 30.5 pg (27.0-33.0); Mean Corpuscular Volume 89.7 fL (80.0-98.0); NRBC Abs Auto 0.020 X10*3/uL (0.0-0.012); NRBC Pct Auto 0.2 /100WBC (0.0-0.2); Platelet Count 314 X10*3/uL (160-400); Red Blood Count 5.05 X10*6/uL (4.60-5.80); White Blood Count 10.9 X10*3/uL (4.8-10.8)
[2025-02-17 18:26] LABS: Hemoglobin A1C 372.1134 umol/L; Total Hemoglobin (HGBA1C) 3981.3797 umol/L
[2025-02-17 18:36] LABS: Alanine Aminotransferase 16 U/L (0-40); Albumin Level 4.3 g/dL (3.5-5.0); Alkaline Phosphatase 102 U/L (39-117); Anion Gap 18 (12-20); Aspartate Amino Transferase 23 U/L (5-37); Blood Urea Nitrogen 22 mg/dL (9-16); Calcium 9.5 mg/dL (8.4-10.2); Carbon Dioxide 25 mmol/L (22-29); Chloride 98 mmol/L (96-108); Estimated Glomerular Filt Rate > 60; Potassium 4.6 mmol/L (3.3-5.1); Sodium 136 mmol/L (135-145); Total Protein 7.6 g/dL (6.5-8.0)
[2025-02-17 18:55] LABS: Prostate Specific Antigen 1.44 ng/mL (<0.05-4.0)
== END 2025-02-17 12:03 | disposition home or self-care (01) ==
LOC: HO.MANLDS 12:02
PROVIDERS: Visit Provider Internal Medicine
DX: Z12.5 Encounter for screening for malignant neoplasm of prostate (principal); I10 Essential (primary) hypertension; E11.9 Type 2 diabetes mellitus without complications
CPT/HCPCS: 36415; 80053; 83036; 84153; 85025